=== PATIENT | female | born 1960 | race Caucasian/White ===

== ENCOUNTER 2018-08-06 09:00 | Emergency (ER) | payer MEDICAID ==
[2018-08-06 09:54] VITALS: BP 120/67
[2018-08-06 10:12] LABS: BASOPHILS # (AUTO) 0.1 10^3/uL (0.0-0.1); BASOPHILS % (AUTO) 1.4 %; EOSINOPHILS # (AUTO) 0.2 10^3/uL (0.0-0.7); EOSINOPHILS % (AUTO) 3.2 %; HGB - HEMOGLOBIN 13.2 g/dL (12.0-16.0); LYMPHOCYTES # (AUTO) 1.5 10^3/uL (1.5-3.5); MEAN CORPUSCULAR HEMOGLOBIN 29.6 pg (27.0-31.0); MEAN CORPUSCULAR HGB CONC 33.2 g/dL (32.0-36.0); MEAN CORPUSCULAR VOLUME 89.3 fL (81.0-99.0); MONOCYTES # (AUTO) 0.5 10^3/uL (0.0-1.0); MONOCYTES % (AUTO) 8.1 %; NEUTROPHILS # (AUTO) 3.7 10^3/uL (1.5-6.6); NEUTROPHILS % (AUTO) 62.3 %; PLT - PLATELET COUNT 266 10^3/uL (130-450); RED BLOOD COUNT 4.45 10^6/uL (4.20-5.40); RED CELL DISTRIBUTION WIDTH 16.8 % (12.0-15.0)
[2018-08-06 10:27] LABS: ALBUMIN 4.2 g/dL (3.2-5.5); ALBUMIN/GLOBULIN RATIO 1.2 (1.0-2.2); BILIRUBIN,TOTAL 0.6 mg/dL (0.2-1.0); CALCIUM 8.9 mg/dL (8.5-10.3); CREATININE 0.9 mg/dL (0.4-1.0); TOTAL PROTEIN 7.7 g/dL (6.7-8.2)
--- NOTE | 2018-08-06 10:51 | ED Physician Documentation ---
PD HPI LOWER EXT INJURY - Stated complaint Stated Complaint: POST SURGRY COMPLICATIONS - Chief complaint Chief Complaint: General - History obtained from History obtained from: Patient - History of Present Illness PD HPI LOW EXT INJURY LOCATION: Left, Knee Type of injury: Other (2 weeks S/P surgical wound) Associated symptoms: Swelling Contributing factors: Prior ortho surgery (Left total knee replacement 06/04/18.) Recently seen: Surgery (Post-op wound infection treated with drain and Vancomycin 2 weeks ago.) - Additional information Additional information: The patient is a 58-year-old female who presents with pain and swelling of her left knee. She underwent left total knee replacement on June 04, 2018. She was recovering postoperatively when she fell down a staircase at home, opening the wound. She was found at that time to have a postoperative wound infection, which was treated with vancomycin and a drain. 2 weeks ago the wound was re- stapled. This all occurred in [place]. She has since moved to [facility] where her parents reside. She presents to the emergency department now because of increased pain and swelling of the left knee over the past 2 days. She denies fever, numbness or weakness. Review of Systems Constitutional: denies: Fever Cardiac: denies: Chest pain / pressure Respiratory: denies: Dyspnea, Cough GI: denies: Abdominal Pain, Nausea, Vomiting : denies: Dysuria Skin: denies: Rash Musculoskeletal: reports: Joint pain (left knee). denies: Back pain Neurologic: denies: Focal weakness, Numbness, Headache PD PAST MEDICAL HISTORY - Past Medical History Past Medical History: Yes Cardiovascular: None Respiratory: None Endocrine/Autoimmune: Other GI: Pancreatitis Other Past Medical History: Thyroid cancer. - Past Surgical History Past Surgical History: Yes General: Liver surgery Ortho: Spine surgery - Present Medications Home Medications: Ambulatory Orders Medication Instructions Recorded Confirmed cephALEXin [Cephalexin] 500 mg PO TID #20 tablet 08/06/18 - Allergies Allergies/Adverse Reactions: Allergies Allergy/AdvReac Type Severity Reaction Status Date / Time No Known Drug Allergies Allergy Verified 08/06/18 09:19 - Social History Does the pt smoke?: No Smoking Status: Never smoker Does the pt drink ETOH?: Yes Does the pt have substance abuse?: No - Immunizations Immunizations are current?: Yes - POLST Patient has POLST: No PD ED PE NORMAL - Vitals Vital signs reviewed: Yes (normal) - General General: Alert and oriented X 3, Well developed/nourished - HEENT HEENT: Atraumatic - Cardiac Cardiac: RRR - Respiratory Respiratory: No respiratory distress, Clear bilaterally - Abdomen Abdomen: Soft, Non tender - Back Back: No spinal TTP - Derm Derm: No rash - Extremities Extremities: No edema, No calf tenderness / cord, Other (Anterior surgical wound of the left knee is intact with maura. There is slight warmth to palpation, and minimal erythema at the wound edges. There is no fluctuance, and no focal tenderness to palpation. There is no wound drainage. She is able to extend the knee fully, and can flex it past 75. Distal neurovascular is intact.) - Neuro Neuro: Alert and oriented X 3, No motor deficit Results - Vitals Vitals: Oxygen O2 Source Room air - Labs Labs: Laboratory Tests 08/06/18 08/06/18 08/06/18 10:06 10:06 10:06 WBC 6.0 RBC 4.45 Hgb 13.2 Hct 39.7 MCV 89.3 MCH 29.6 MCHC 33.2 RDW 16.8 H Plt Count 266 MPV 8.0 Neut # (Auto) 3.7 Lymph # (Auto) 1.5 [place] # (Auto) 0.5 Eos # (Auto) 0.2 Baso # (Auto) 0.1 Absolute Nucleated RBC 0.00 Nucleated RBC % 0.0 ESR 12 Sodium 137 Potassium 3.8 Chloride 106 Carbon Dioxide 22 Anion Gap 9.0 BUN 15 Creatinine 0.9 Estimated GFR (MDRD) 65 L Glucose 95 Calcium 8.9 Total Bilirubin 0.6 AST 23 ALT 22 Alkaline Phosphatase 94 C-Reactive Protein Total Protein 7.7 Albumin 4.2 Globulin 3.5 Albumin/Globulin Ratio 1.2 Lipase 42 08/06/18 10:06 WBC RBC Hgb Hct MCV MCH MCHC RDW Plt Count MPV Neut # (Auto) Lymph # (Auto) [place] # (Auto) Eos # (Auto) Baso # (Auto) Absolute Nucleated RBC Nucleated RBC % ESR Sodium Potassium Chloride Carbon Dioxide Anion Gap BUN Creatinine Estimated GFR (MDRD) Glucose Calcium Total Bilirubin AST ALT Alkaline Phosphatase C-Reactive Protein < 1.0 Total Protein Albumin Globulin Albumin/Globulin Ratio Lipase PD MEDICAL DECISION MAKING - ED course Complexity details: reviewed results, re-evaluated patient, considered differential, d/w patient, d/w family, d/w datastage consultant ED course: The patient's presentation is significant for postoperative pain of the left knee, following total knee replacement with history of postoperative wound infection. There is only slight erythema at the wound margins at this time, without appreciable fluid collection by bedside ultrasound. CBC reveals a normal white count of 6.0. Sedimentation rate is normal at 12, and CRP is normal at less than 1.0. Treatment in the emergency department included removal of every other staple. I discussed her condition with Dr. Delgado, who is on-call for orthopedics. He agrees with antibiotic therapy and outpatient follow-up. She is being discharged with a prescription for cephalexin. I discussed with her and her father antibiotic treatment, outpatient orthopedic follow-up, as well as potentially worrisome signs or symptoms that should prompt reevaluation in the emergency department. Departure - Departure Disposition: 01 Home, Self Care Clinical Impression: Postoperative wound cellulitis S/P knee replacement Qualifiers: Laterality: left Qualified Code(s): Z96.652 - Presence of left artificial knee joint Condition: Stable Instructions: ED Wound Infec After Surgery Follow-Up: [facility] [Provider Group] Prescriptions: cephALEXin [Cephalexin] 500 mg PO TID #20 tablet Comments: Take cephalexin 3 times daily as prescribed. You can use ibuprofen, up to 800 mg 3 times daily for its anti-inflammatory effect. Keep your left leg elevated as much of the time as possible. Wear the knee immobilizer when walking. Follow-up in the orthopedic clinic within 1 week. Call today to schedule an appointment. Return to the emergency department if you develop increasing pain, swelling, fever, or otherwise worsening symptoms. Discharge Date/Time: 08/06/18 11:31
== END 2018-08-06 11:31 | disposition home or self-care (01) ==
LOC: ED 09:00
DX: T81.89XA Other complications of procedures, not elsewhere classified, initial encounter (principal); L03.116 Cellulitis of left lower limb; T84.84XA Pain due to internal orthopedic prosthetic devices, implants and grafts, initial encounter
CPT/HCPCS: 36415; 80053; 83690; 85025; 85651; 86140; 99283

== ENCOUNTER 2018-09-04 18:36 | Emergency (ER) | payer MEDICAID ==
[2018-09-04 18:50] VITALS: BP 136/87
--- NOTE | 2018-09-04 19:16 | ED Physician Documentation ---
History of Present Illness - Stated complaint Stated Complaint: LT KNEE PX - Chief complaint Chief Complaint: Trauma Ext - History obtained from History obtained from: Patient - Additonal information Additional information: Patient is a 58-year-old female presenting with left knee pain and swelling after accidentally taking it earlier today. Patient reports that she had previous left knee replacement at the end of May 2018 that was complicated with wound infection that was treated with vancomycin. Patient has been struggling with persistent pain and swelling since that time and has tried some bracing, but yet to start physical therapy. Patient denies fever, warmth, or other infectious signs. However, she does report increased pain from baseline and swelling from baseline after accidentally twisting her knee earlier today. Patient denies other bony pain or injury. 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 Patient has elevated and iced it with minimal relief. No other improving or worsening factors noted. Patient also reports no significant change in strength, range of motion to this lower extremity. Review of Systems Constitutional: denies: Fever Musculoskeletal: reports: Extremity pain PD PAST MEDICAL HISTORY - Past Medical History Past Medical History: Yes Cardiovascular: Hypertension Respiratory: None Endocrine/Autoimmune: Other GI: Pancreatitis Psych: Anxiety Other Past Medical History: Thyroid CA - Past Surgical History Past Surgical History: Yes General: Liver surgery Ortho: Spine surgery - Present Medications Home Medications: Ambulatory Orders Medication Instructions Recorded Confirmed Avostatin 25 mg 09/04/18 Citalopram Hydrobromide 1 tab PO DAILY 09/04/18 09/04/18 [Citalopram HBr] Levothyroxine [Synthroid] 1 tab PO DAILY 09/04/18 09/04/18 Zolpidem Tartrate [Ambien] 1 tab PO DAILY 09/04/18 09/04/18 - Allergies Allergies/Adverse Reactions: Allergies Allergy/AdvReac Type Severity Reaction Status Date / Time No Known Drug Allergies Allergy Verified 09/04/18 19:11 - Social History Does the pt smoke?: No Smoking Status: Never smoker Does the pt drink ETOH?: Yes Does the pt have substance abuse?: No - Immunizations Immunizations are current?: Yes - POLST Patient has POLST: No PD ED PE NORMAL - General General: Alert and oriented X 3, No acute distress, Well developed/nourished - Cardiac Cardiac: Strong equal pulses (Cap refill brisk) - Respiratory Respiratory: No respiratory distress - Derm Derm: Normal color, Warm and dry, No rash, Other (Appropriately healing scars to left and right knee without signs of infection or other complication) - Extremities Extremities: No deformity. No: No tenderness to palpate, Normal ROM s pain, No edema (Mild tenderness and appreciable swelling to left knee diffusely. Decreased range of motion of left knee, particularly in flexion, which patient reports is baseline. Do not find evidence of laxity on knee exam.) - Neuro Neuro: No sensory deficit (Patient reports baseline strength and range of motion to left lower extremity, but slightly worsened decreased sensation). No: No motor deficit - Psych Psych: Normal mood, Normal affect Results - Vitals Vitals: Vital Signs - 24 hr 09/04/18 18:46 Temperature 36.7 C Heart Rate 82 Respiratory 20 Rate Blood Pressure 136/87 H O2 Saturation 99 Oxygen O2 Source Room air PD MEDICAL DECISION MAKING - ED course Complexity details: reviewed old records, considered differential, d/w patient, d/w family ED course: Feel the patient likely sprained and irritated her knee with accidental movements earlier today. Do not have high suspicion for damage to hardware, bone, meniscus, or ligaments at this time. Also no sign of joint infection or wound infection present. Patient does have slightly swollen knee, which can be treated with supportive cares. Patient's neuropathy is relatively at baseline and do not feel that she is at high risk for new nerve complications. Discussed bracing, PT, and other supportive cares, as well as appropriate return precautions and follow-up. Patient voiced understanding and is comfortable with discharge plan. Departure - Departure Disposition: 01 Home, Self Care Clinical Impression: Knee injury Qualifiers: Encounter type: initial encounter Laterality: left Qualified Code(s): S89.92XA - Unspecified injury of left lower leg, initial encounter Condition: Good Instructions: ED Knee Pain [facility] Follow-Up: Riddhi Lam ARNP [Primary Care Provider] - Within 3 Days Comments: Please continue any home medications as previously prescribed. Recommend elevation, ice application, use of ibuprofen/Tylenol.Please follow-up with your primary care physician and orthopedic surgery in the next 1-2 days. Recommend bracing, as well as physical therapy. Return to ED sooner if expands worsening symptoms, new injury, or other concerns. Discharge Date/Time: 09/04/18 19:47
== END 2018-09-04 19:47 | disposition home or self-care (01) ==
LOC: ED 18:36
DX: S89.92XA Unspecified injury of left lower leg, initial encounter (principal); X58.XXXA Exposure to other specified factors, initial encounter; Z96.652 Presence of left artificial knee joint; I10 Essential (primary) hypertension
CPT/HCPCS: 99283

== ENCOUNTER 2018-09-15 11:06 | Outpatient (CLI) | payer MEDICAID ==
[2018-09-15 18:24] LABS: ALBUMIN 4.8 g/dL (3.2-5.5); ALBUMIN/GLOBULIN RATIO 1.4 (1.0-2.2); BILIRUBIN,TOTAL 1.4 mg/dL (0.2-1.0); CALCIUM 9.8 mg/dL (8.5-10.3); CREATININE 0.9 mg/dL (0.4-1.0); TOTAL PROTEIN 8.3 g/dL (6.7-8.2)
[2018-09-15 18:38] LABS: BASOPHILS # (AUTO) 0.1 10^3/uL (0.0-0.1); BASOPHILS % (AUTO) 0.8 %; EOSINOPHILS # (AUTO) 0.2 10^3/uL (0.0-0.7); EOSINOPHILS % (AUTO) 3.2 %; HGB - HEMOGLOBIN 14.7 g/dL (12.0-16.0); LYMPHOCYTES # (AUTO) 2.5 10^3/uL (1.5-3.5); LYMPHOCYTES % (AUTO) 38.9 %; MEAN CORPUSCULAR HEMOGLOBIN 28.7 pg (27.0-31.0); MONOCYTES # (AUTO) 0.4 10^3/uL (0.0-1.0); MONOCYTES % (AUTO) 6.9 %; NEUTROPHILS # (AUTO) 3.2 10^3/uL (1.5-6.6); NEUTROPHILS % (AUTO) 50.2 %; PLT - PLATELET COUNT 294 10^3/uL (130-450); RED BLOOD COUNT 5.13 10^6/uL (4.20-5.40); WHITE BLOOD COUNT 6.3 x10^3/uL (4.8-10.8)
[2018-09-15 18:51] LABS: HB2 TOTAL 15.9 g/dL; HEMOGLOBIN A1C 0.63 g/dL; HEMOGLOBIN A1C % 5.8 % (4.6-6.2)
[2018-09-15 18:59] LABS: CREATININE,URINE 175.9 mg/dL; MICROALBUM/CREATININE RATIO,UR 2.3 ug/mg (<30.0); MICROALBUMIN,URINE 0.4 mg/dL (0-300.0)
== END 2018-09-15 11:07 | disposition home or self-care (01) ==
LOC: LAB.F 11:06
PROVIDERS: ATTEND Registered Nurse
DX: Z00.00 Encounter for general adult medical examination without abnormal findings (principal); S37.009S Unspecified injury of unspecified kidney, sequela; K86.1 Other chronic pancreatitis; E03.9 Hypothyroidism, unspecified
CPT/HCPCS: 36415; 80050; 82043; 82150; 82570; 83036

== ENCOUNTER 2018-10-26 22:13 | Outpatient (CLI) | payer MEDICAID ==
--- NOTE | 2018-10-27 00:06 | Ultrasound Report ---
Reason: SWELLING OF LEFT LEG Procedure Date: 10/26/2018 Accession Number: [id number] / [id number] Procedure: US - Duplex Ext Veins Left CPT Code: FULL RESULT: EXAM: LEFT LOWER EXTREMITY VENOUS ULTRASOUND EXAM DATE: 10/26/2018 11:46 PM. CLINICAL HISTORY: SWELLING OF LEFT LEG. COMPARISON: None. TECHNIQUE: Real-time sonographic vascular imaging was performed by the sack sorter through the lower extremity utilizing both color-flow and Doppler spectral analysis. Multiple truck sales representative static images were saved for review. FINDINGS: Common Femoral Vein (CFV): Normal. CFV-GSV Junction: Normal. Profunda Femoral Vein (PFV): Normal. Femoral Vein (FV) Prox: Normal. Femoral Vein (FV) Mid: Normal. Femoral Vein (FV) Dist: Normal. Popliteal Vein: Normal. Posterior Tibial Veins: Normal. Peroneal Veins: Normal. Contralateral Side CFV: Normal. Other: None. IMPRESSION: No evidence for deep venous thrombosis. [facility] The call report notification system was initiated by Dr. Babak England at 12:05 AM on 10/27/2018.
== END 2018-10-26 22:14 | disposition home or self-care (01) ==
LOC: DI 22:13
PROVIDERS: ATTEND Registered Nurse
DX: M79.89 Other specified soft tissue disorders (principal)

== ENCOUNTER 2019-09-15 15:25 | Emergency (ER) | payer OTHER, MEDICAID ==
[2019-09-15 15:41] VITALS: BP 154/94
--- NOTE | 2019-09-15 16:03 | ED Physician Documentation ---
History of Present Illness - Stated complaint Stated Complaint: FEVER - Chief complaint Chief Complaint: General - Additonal information Additional information: Patient comes emergency department complaining of sinus congestion and possible fever intermittently. She states that she was not experiencing cough but while visiting family after arriving here from [place] a couple of weeks ago, the patient felt the urge to cough and her family became upset, stating that they felt that she likely had coronavirus and had needlessly expose the family. Patient states that she is here because her family wants her to get tested. She does not believe she is coronavirus because the presence of [place] in which she works and lives has not had any documented positive cases. Patient did however fly with people from other provinces and does not know if she had any exposures to anybody else during her travels. Patient denies fevers. No shortness of breath. No GI symptoms. No sore throat. No other complaints at this time. Review of Systems Ten Systems: 10 systems reviewed and negative Constitutional: reports: Reviewed and negative Eyes: reports: Reviewed and negative Ears: reports: Reviewed and negative Nose: reports: Rhinorrhea / runny nose, Congestion Throat: reports: Reviewed and negative Cardiac: reports: Reviewed and negative Respiratory: reports: Reviewed and negative GI: reports: Reviewed and negative : reports: Reviewed and negative Skin: reports: Reviewed and negative Musculoskeletal: reports: Reviewed and negative Neurologic: reports: Reviewed and negative Psychiatric: reports: Reviewed and negative Endocrine: reports: Reviewed and negative Immunocompromised: reports: Reviewed and negative PD PAST MEDICAL HISTORY - Past Medical History Past Medical History: Yes Cardiovascular: Hypertension Respiratory: None Endocrine/Autoimmune: Other GI: Pancreatitis Psych: Anxiety - Past Surgical History Past Surgical History: Yes General: Liver surgery Ortho: Spine surgery - Present Medications Home Medications: Ambulatory Orders Medication Instructions Recorded Confirmed Avostatin 25 mg 09/04/18 Citalopram Hydrobromide 1 tab PO DAILY 09/04/18 09/04/18 [Citalopram HBr] Levothyroxine [Synthroid] 1 tab PO DAILY 09/04/18 09/04/18 Zolpidem Tartrate [Ambien] 1 tab PO DAILY 09/04/18 09/04/18 - Allergies Allergies/Adverse Reactions: Allergies Allergy/AdvReac Type Severity Reaction Status Date / Time No Known Drug Allergies Allergy Verified 09/04/18 19:11 - Social History Does the pt smoke?: No Smoking Status: Never smoker Does the pt drink ETOH?: Yes Does the pt have substance abuse?: No - Immunizations Immunizations are current?: Yes - POLST Patient has POLST: No PD ED PE NORMAL - Vitals Vital signs reviewed: Yes - General General: Alert and oriented X 3, No acute distress, Well developed/nourished - HEENT HEENT: Atraumatic, PERRL, EOMI, Moist mucous membranes - Neck Neck: Supple, no meningeal sign - Cardiac Cardiac: RRR, No murmur - Respiratory Respiratory: No respiratory distress, Clear bilaterally - Abdomen Abdomen: Soft, Non tender, Non distended - Derm Derm: Normal color, Warm and dry, No rash - Extremities Extremities: No deformity, No edema - Neuro Neuro: Alert and oriented X 3, buildings painter 2-12 intact, Normal speech, Other (Grossly intact) - Psych Psych: Normal mood, Normal affect Results - Vitals Vitals: Vital Signs - 24 hr 09/15/19 09/15/19 15:37 15:41 Temperature 36.8 C Heart Rate 96 100 Respiratory 16 14 Rate Blood Pressure 154/94 H 154/94 H O2 Saturation 99 99 Oxygen O2 Source Room air PD MEDICAL DECISION MAKING - ED course Complexity details: considered differential, d/w patient ED course: The patient was actually quite well-appearing in the emergency department. I discussed with her that she may or may not have coronavirus; however, given that she is just come from [place] and has engaged in travel and close space with people from all parts of the country, it is better that she just get tested at this time to put the issue to rest. The patient does not need any further intervention at this time. She has been swab for coated and understands the results will not be back for another 1 to 3 days. We have discussed home management of the symptoms, as well as usual indications for return. Departure - Departure Disposition: 01 Home, Self Care Clinical Impression: Upper respiratory infection Qualifiers: URI type: unspecified viral URI Qualified Code(s): J06.9 - Acute upper respiratory infection, unspecified Condition: Stable Instructions: ED URI Viral
== END 2019-09-15 16:19 | disposition home or self-care (01) ==
LOC: ED 15:25
DX: J06.9 Acute upper respiratory infection, unspecified (principal); I10 Essential (primary) hypertension
CPT/HCPCS: 81599; 99282; 99283